=== PATIENT | female | born 1995 | race African-American/Black ===

== ENCOUNTER → 2016-05-15 | Outpatient (REF) | payer OTHER ==
[2016-05-15 20:23] LABS: T UPTAKE 24 % (30-39); THYROXINE (T4) 15.3 UG/DL (4.5-12.0)
== END ==
LOC: M SFHCLERA 12:14
PROVIDERS: ATTEND Family Medicine
DX: Z00.00 Encounter for general adult medical examination without abnormal findings (principal); E04.9 Nontoxic goiter, unspecified

== ENCOUNTER → 2016-05-20 | Outpatient (REF) | payer OTHER | LOC: M SFHCLERA 09:47 | PROVIDERS: ATTEND Family Medicine | DX: Z23 Encounter for immunization (principal) ==

== ENCOUNTER → 2016-08-04 | Outpatient (REF) | payer OTHER ==
[2016-08-04 19:26] LABS: FREE T4 0.92 NG/DL (0.76-1.46)
== END ==
LOC: M SFHCLERA 10:48
PROVIDERS: ATTEND Family Medicine
DX: E04.9 Nontoxic goiter, unspecified (principal)
CPT/HCPCS: 84439; 84443; G0463

== ENCOUNTER → 2016-08-06 | Outpatient (CLI) | payer OTHER ==
--- NOTE | 2016-08-06 19:06 | REP ---
Thyroid ultrasound: The thyroid gland is normal size. The right lobe measures 3.6 x 1.2 x 1.4 cm. The left lobe measures 3.1 by 0.9 x 1.3 cm. The isthmus is 3 mm thickness. The thyroid parenchyma is homogeneous. Balloon balloon There is a cyst in the right lobe measuring 3.4 mm. Impression: There is a 3.4 mm thyroid right lobe cyst. Otherwise, negative thyroid ultrasound. Signed by Ruben Luna MD 08/06/2016 06:59 P
--- NOTE | 2016-08-06 19:09 | REP ---
Pelvic ultrasound: Comparison is 10/12/2015. The studies performed with transabdominal imaging. The bladder is adequately distended. The uterus is anteverted and normal size measuring 7.1 x 4.1 x 4.7 cm. The endometrium is not thickened measuring 3.4 mm. The ovaries are normal size. Right ovary measures 3.7 x 2.3 x 2.5 cm. The left ovary measures 2.2 x 1.4 x 2.4 cm. There are no dominant ovarian masses or cysts. There is vascular flow in both ovaries with the Doppler resistive index of the intraparenchymal arteries on the right measuring 0.61 on the left 0.44. There is no free fluid in the pelvis. Impression: Normal pelvic ultrasound. There is vascular flow in both ovaries. No dominant ovarian masses or cysts. No free fluid. Signed by Ruben Luna MD 08/06/2016 07:01 P
== END ==
LOC: M RAD 16:34
PROVIDERS: ATTEND Family Medicine
DX: E04.9 Nontoxic goiter, unspecified (principal); N83.209 Unspecified ovarian cyst, unspecified side

== ENCOUNTER → 2016-09-23 | Outpatient (REF) | payer OTHER | LOC: M SFHCLERA 16:17 | PROVIDERS: ATTEND Nurse Practitioner Family | DX: Z11.59 Encounter for screening for other viral diseases (principal); Z53.9 Procedure and treatment not carried out, unspecified reason ==

== ENCOUNTER → 2016-10-16 | Outpatient (REF) | payer OTHER | LOC: M SFHCLERA 16:32 | PROVIDERS: ATTEND Nurse Practitioner Family | DX: J02.9 Acute pharyngitis, unspecified (principal) ==

== ENCOUNTER → 2017-02-13 | Outpatient (CLI) | payer OTHER ==
--- NOTE | 2017-02-13 15:29 | REP ---
Pelvic ultrasound : Comparison is 08/06/2016. The study is performed with transabdominal and Doppler ultrasound assessment. The bladder is adequately distended. The uterus is anteverted and normal size measuring 8.2 x 3.8 before 0.5 cm. The endometrium is not thickened measuring 4.7 mm. The ovaries are normal size. Right ovary measures 2.9 x 1.7 x 2.6 cm. Left ovary measures 3.5 x 2.2 x 2.8 cm per There is no dominant mass or cyst in the right and the left ovary. There is vascular flow in both ovaries. The Doppler resistive index of the intraparenchymal arteries on the right 0.66 and 0.57. There is no free fluid in the cul-de-sac. Impression: Essentially negative pelvic ultrasound. Signed by Ruben Luna MD 02/13/2017 03:20 P
== END ==
LOC: M RAD 12:46
PROVIDERS: ATTEND Nurse Practitioner Women's Health
DX: R10.32 Left lower quadrant pain (principal)

== ENCOUNTER 2017-04-03 19:46 | Emergency (ER) | payer OTHER ==
[~2017-04-03] VITALS: Ht 163.8 cm; Wt 102.7 kg
[2017-04-03 19:54] VITALS: BP 124/76
== END 2017-04-03 22:33 | disposition left against medical advice (07) ==
LOC: M ED 19:46
DX: Z53.29 Procedure and treatment not carried out because of patient's decision for other reasons (principal)